=== PATIENT | female | born 1965 | race Two or more races ===

== ENCOUNTER 2022-03-31 21:48 | Emergency (ER) | payer OTHER ==
[~2022-03-31] VITALS: Ht 152.4 cm; Wt 54.9 kg
[2022-03-31] MEDS ORDERED: CLONAZEPAM0.5 M1 (22:22)
[2022-03-31] MEDS ORDERED: RESTORIL7.5 MG (22:23)
[2022-03-31] MEDS ORDERED: LOSARTAN POTASS25 MG (22:24)
== END 2022-04-01 01:52 | disposition home or self-care (01) ==
LOC: ER 21:48
DX: U07.1 COVID-19 (principal); Z88.8 Allergy status to other drugs, medicaments and biological substances